=== PATIENT | female | born 1985 | race Caucasian/White ===

== ENCOUNTER 2017-08-22 12:26 | Outpatient (CLI) | payer OTHER ==
--- NOTE | 2017-08-22 16:50 | ULT ---
PELVIC ULTRASOUND: 08/22/17 HISTORY: Threatened . Positive with beta HCG reportedly at approximately 22,000. FINDINGS: Multiple transabdominal and endovaginal sonographic images of the pelvis are obtained. The uterus measures 9.1 cm x 4.4 cm x 6.3 cm. There is a fluid collection within the endometrial riccardo l. There is a few echogenic foci seen within the endometrial canal, one of which could potentially re present a pole, but this cannot be definitively determined based on this exam. The mean sac darren meter is 2.35 cm which corresponds to gestational age of 7 weeks and 3 days and at this time a define d pole should be visualized which is not definitively seen on this exam. There are no detectabl e heart tones present. There is a small hypoechoic area seen adjacent to the gestational sac in a subchorionic location whic h may represent a small subchorionic hemorrhage which measures 0.9 cm and may represent a small subch orionic hemorrhage. The right ovary is visualized on transabdominal imaging and measures 1.7 cm x 2.5 cm x 1.2 cm. Dopple r evaluation of the right ovary with spectral analysis and color flow evaluation does demonstrate jose manuel ous flow. Definitive arterial flow is difficult to illicit especially given positioning of the right ovary on transabdominal imaging. There is a large anechoic cystic structure seen within the left adnexa which may represent a very lar ge left ovarian cyst, but normal ovarian tissue is difficult to delineate given size of the cystic le jo ann. This anechoic cystic lesion measures 5.2 cm x 4.5 cm x 3.4 cm. No free fluid is seen in the cul-de-sac. IMPRESSION: 1. Fluid collection in the endometrial canal with echogenic material seen within the fluid colle ction. While this could be related to an early intrauterine gestation, the gestational age by mean sa c diameter is 7 weeks and 3 days. No definitive pole is visualized, and there are no hear t tones detected. Findings could be related to either early intrauterine gestation or secondary to th reatened . Followup ultrasound examination as well as followup quantitative beta HCG levels a re recommended. Ectopic cannot be excluded based on sonographic evaluation. 2. Large anechoic cystic lesion left adnexa which may represent a large left ovarian cyst. This can also be re-evaluated on followup examination. 3. Above findings were discussed with Dr. Abena Thurston on 08/22/17 at 1329 hours. POS: [facility]
== END 2017-08-22 12:27 | disposition home or self-care (01) ==
LOC: ULT 12:26
PROVIDERS: ATTEND Family Medicine
DX: O20.0 Threatened abortion (principal); N83.8 Other noninflammatory disorders of ovary, fallopian tube and broad ligament; Z3A.01 Less than 8 weeks gestation of pregnancy
CPT/HCPCS: 76856